=== PATIENT | male | born 1945 | race Caucasian/White ===

== ENCOUNTER 2023-09-19 12:23 | Inpatient (IN) | payer MEDICARE ==
[2023-09-19 14:06] LABS: Bilirubin Neg (Negative); Blood, Urine 250 (Negative); Clarity Cloudy (Clear); Glucose, Urine (Dipstick) Normal (Negative); Ketone, Urine Negative (Negative); Leukocyte 500 (Negative); Nitrite Negative (Negative); Protein, Urine (Dipstick) 30 mg/dl (Neg-Trace); Urobilinogen Normal mg/dL (Less than 2)
[2023-09-19 14:16] LABS: #Basophils 0.05 10x3/uL (0.0-0.2); #Monocytes 1.37 10x3/uL (0.0-1.1); #Neutrophils 9.25 10x3/uL (1.5-8.4); %Basophils 0.4 % (0.0-2.0); %Lymphocytes 10.3 % (18.0-47.0); %Monocytes 11.5 % (0.0-10.0); %Neutrophils 77.4 % (40.0-75.0); Hematocrit 36.4 % (38.8-50.0); Hemoglobin 12.3 g/dL (13.5-17.5); Mean Corpuscular HGB CONC 33.8 g/dL (32.0-36.0); Mean Corpuscular Hemoglobin 32.2 pg (27.0-33.0); Mean Corpuscular Volume 95.3 fl (81.2-95.1); Mean Platelet Volume 9.5 fl (7.4-10.4); Platelet Count 238 10x3/uL (150-450); RBC Distribution Width 13.7 % (11.5-14.5); Red Blood Cell (RBC) Count 3.82 10x6/uL (4.32-5.72)
[2023-09-19 14:17] LABS: Amphetamine Not Detected (NotDetected); Barbiturates Screen Not Detected (NotDetected); Benzodiazepine Screen Not Detected (NotDetected); Cocaine Metabolite Screen Not Detected (NotDetected); Methadone Not Detected (NotDetected); Methamphetamine Not Detected (NotDetected); Opiate Screen Not Detected (NotDetected); Oxycodone Screen Not Detected (NotDetected); Phencyclidine (PCP) Not Detected (NotDetected); THC/Cannabinoid Screen Not Detected (NotDetected); Tricyclic Screen Not Detected (NotDetected)
[2023-09-19 14:22] LABS: Troponin I 0.014 ng/mL (< 0.028)
[2023-09-19 14:27] LABS: Acetaminophen Less than 10 mcg/mL (10.0-30.0); Alcohol Less than 10.0 mg/dL (Less than 10); Salicylate Less than 8.0 mg/dL (15.0-30.0)
[2023-09-19 14:29] LABS: ALT (SGPT) 12 U/L (8-55); AST (SGOT) 10 U/L (5-34); Albumin 2.3 g/dL (3.4-4.8); Alkaline Phosphatase 64 U/L (40-110); Anion Gap 14 mmol/L (10-20); BUN (Urea Nitrogen) 37 mg/dL (8.4-25.7); Bilirubin, Total 0.6 mg/dL (0.2-1.2); Calc. Creatinine Clearance 0 mL/min (70-130); Carbon Dioxide 27 mmol/L (23-31); Chloride 108 mmol/L (98-107); Estimated GFR 85; Globulin 3.8 g/dL (2.4-3.5); Glucose 180 mg/dL (83-110); Potassium 3.5 mmol/L (3.5-5.1); Protein, Total 6.1 g/dL (5.8-8.1); Sodium 145 mmol/L (136-145)
[2023-09-19 14:34] LABS: CAUTI Indications for Culture Alt mental st,lethar; RBC/HPF Greater than 50 HPF (0-3); Renal Epithelial 0-3 HPF (None Seen); Squamous Epithelial 0-3 HPF (0-3)
[2023-09-19 14:35] LABS: Bacteria/HPF Rare-Few HPF (None Seen)
[2023-09-19 14:36] LABS: Urine Culture Reflex Yes Yes
[2023-09-19] MEDS ORDERED: Ondansetron PF 4 MG/2 ML Vial IVP PRN (17:59)
[2023-09-19] MEDS ORDERED: Communication Order-Pharmacy FS ONE (17:59)
[2023-09-19] MEDS ORDERED: Ondansetron ODT 4 MG TAB PO PRN (17:59)
[2023-09-19] MEDS ORDERED: Acetaminophen 650 MG Suppository PR PRN (17:59)
[2023-09-19] MEDS ORDERED: Ipratropium/Albuterol 3 ML NEB NEB PRN (18:13)
[2023-09-19] MEDS ORDERED: Electrolyte Replacement Protocol 1 EACH FS SCH (18:15)
[2023-09-19] MEDS ORDERED: Electrolyte Replacement Protocol FS PRN (18:30)
[2023-09-19] MEDS: Lactated Ringer's 1,000 ML IV SCH (19:32)
[2023-09-19] MEDS: Albumin 25% 25 GM (100 mL) BOT IVPB SCH (19:32)
[2023-09-19] MEDS: Cefepime 2 GM in Sodium Chloride 0.9% 100 ML IVPB SCH (19:53)
[2023-09-19] MEDS ORDERED: metFORMIN XR 500 MG ER.TAB PO SCH (21:00)
[2023-09-19] MEDS ORDERED: Vancomycin 1 GM in Sodium Chloride 0.9% 250 ML 300 ML IVPB SCH (21:00)
[2023-09-19] MEDS: Donepezil HCl 5 MG TAB PO SCH (22:10)
[2023-09-19] MEDS: Apixaban 5 MG TAB PO SCH (22:11)
[2023-09-19] MEDS: Memantine 10 MG TAB PO SCH (22:11)
[2023-09-19] MEDS: Lantus 1000 UNITS/10 ML VIAL SC SCH (22:11)
[2023-09-19] MEDS: Famotidine/PF 20 mg/2ml Vial SLOW IVP SCH (22:11)
[2023-09-19] MEDS: Famotidine 20 MG TAB PO SCH (22:11)
[2023-09-19] MEDS: Ranolazine ER 500 MG TAB PO SCH (22:11)
[2023-09-19] MEDS: Atorvastatin Calcium 40 MG TAB PO SCH (22:11)
[2023-09-19] MEDS: Vancomycin HCl 750 MG in Sodium Chloride 0.9% 250 ML 250 ML IVPB SCH (22:33)
[2023-09-20 05:12] LABS: #Basophils 0.04 10x3/uL (0.0-0.2); #Eosinphils 0.05 10x3/uL (0.0-0.5); #Monocytes 0.89 10x3/uL (0.0-1.1); #Neutrophils 6.58 10x3/uL (1.5-8.4); %Basophils 0.4 % (0.0-2.0); %Eosinophils 0.6 % (0.0-6.0); %Monocytes 9.8 % (0.0-10.0); %Neutrophils 72.9 % (40.0-75.0); Hemoglobin 11.7 g/dL (13.5-17.5); Mean Corpuscular HGB CONC 33.4 g/dL (32.0-36.0); Mean Corpuscular Hemoglobin 31.7 pg (27.0-33.0); Mean Corpuscular Volume 94.9 fl (81.2-95.1); Mean Platelet Volume 9.2 fl (7.4-10.4); Platelet Count 198 10x3/uL (150-450); RBC Distribution Width 13.6 % (11.5-14.5); Red Blood Cell (RBC) Count 3.69 10x6/uL (4.32-5.72)
[2023-09-20 05:15] VITALS: BMI 27.1
[2023-09-20 05:20] LABS: Vancomycin, Random 19.9 ug/mL (See Comment)
[2023-09-20 05:22] LABS: Anion Gap 13 mmol/L (10-20); BUN (Urea Nitrogen) 33 mg/dL (8.4-25.7); Calc. Creatinine Clearance 105 mL/min (70-130); Calcium 8.6 mg/dL (7.8-10.44); Carbon Dioxide 26 mmol/L (23-31); Chloride 111 mmol/L (98-107); Estimated GFR 91; Glucose 173 mg/dL (83-110); Magnesium 1.7 mg/dL (1.6-2.6); Potassium 3.5 mmol/L (3.5-5.1); Sodium 146 mmol/L (136-145)
[2023-09-20] MEDS: Cefepime 2 GM in Sodium Chloride 0.9% 100 ML IVPB SCH (05:35)
[2023-09-20] MEDS: Polyethylene Glycol 3350 17 GM Packet PO SCH (08:37)
[2023-09-20] MEDS: Furosemide 40 MG TAB PO SCH (08:42)
[2023-09-20] MEDS: Lisinopril 10 MG TAB PO SCH (08:42)
[2023-09-20] MEDS: metFORMIN 500 MG TAB PO SCH (08:43)
[2023-09-20] MEDS: Potassium Chloride 20 MEQ TAB PO SCH (08:43)
[2023-09-20] MEDS: Sertraline 100 MG TAB PO SCH (08:43)
[2023-09-20] MEDS: Aspirin 81 mg Enteric Coated Tablet PO SCH (08:43)
[2023-09-20] MEDS: Magnesium 2 GM/50 ML(in water) 2 GM in Premix 1 BAG IVPB SCH (08:50)
[2023-09-20] MEDS: Vancomycin 1 GM in Sodium Chloride 0.9% 250 ML 250 ML IVPB SCH (10:59)
[2023-09-20] MEDS ORDERED: Bisacodyl 5 MG TAB PO PRN (14:08)
[2023-09-20] MEDS ORDERED: Senokot S 8.6-50 MG TAB PO PRN (14:08)
[2023-09-20] MEDS: Acetaminophen 325 MG TAB PO PRN (15:03)
[2023-09-20] MEDS: Icosapent Ethyl 1 GM CAPSULE PO SCH (18:39)
[2023-09-21 04:14] LABS: Vancomycin, Random 12.9 ug/mL (See Comment)
[2023-09-21 10:29] LABS: Anion Gap 11 mmol/L (10-20); BUN (Urea Nitrogen) 26 mg/dL (8.4-25.7); Calc. Creatinine Clearance 115 mL/min (70-130); Calcium 8.4 mg/dL (7.8-10.44); Carbon Dioxide 28 mmol/L (23-31); Chloride 106 mmol/L (98-107); Estimated GFR 94; Glucose 83 mg/dL (83-110); Potassium 3.6 mmol/L (3.5-5.1); Sodium 141 mmol/L (136-145)
[2023-09-21] MEDS: Vancomycin 1 GM in Sodium Chloride 0.9% 250 ML 250 ML IVPB SCH (11:25)
[2023-09-21] MEDS: Tamsulosin HCl 0.4 MG CAP PO SCH (17:01)
[2023-09-22 03:26] LABS: #Basophils 0.03 10x3/uL (0.0-0.2); #Monocytes 0.56 10x3/uL (0.0-1.1); #Neutrophils 5.09 10x3/uL (1.5-8.4); %Basophils 0.4 % (0.0-2.0); %Eosinophils 3.9 % (0.0-6.0); %Lymphocytes 22.2 % (18.0-47.0); %Monocytes 7.3 % (0.0-10.0); %Neutrophils 65.8 % (40.0-75.0); Hematocrit 33.9 % (38.8-50.0); Hemoglobin 11.3 g/dL (13.5-17.5); Mean Corpuscular HGB CONC 33.3 g/dL (32.0-36.0); Mean Corpuscular Hemoglobin 31.1 pg (27.0-33.0); Mean Corpuscular Volume 93.4 fl (81.2-95.1); Mean Platelet Volume 9.7 fl (7.4-10.4); Platelet Count 185 10x3/uL (150-450); RBC Distribution Width 12.6 % (11.5-14.5); Red Blood Cell (RBC) Count 3.63 10x6/uL (4.32-5.72); White Blood Cell (WBC) Count 7.7 10x3/uL (3.5-10.5)
[2023-09-22 03:50] LABS: Anion Gap 12 mmol/L (10-20); BUN (Urea Nitrogen) 24 mg/dL (8.4-25.7); Calc. Creatinine Clearance 124 mL/min (70-130); Calcium 8.1 mg/dL (7.8-10.44); Carbon Dioxide 24 mmol/L (23-31); Chloride 102 mmol/L (98-107); Estimated GFR 96; Glucose 69 mg/dL (83-110); Potassium 3.3 mmol/L (3.5-5.1); Sodium 135 mmol/L (136-145)
[2023-09-22] MEDS: Tamsulosin HCl 0.4 MG CAP PO SCH (09:32)
[2023-09-22] MEDS: Potassium Chloride 20 MEQ TAB PO SCH (09:33)
[2023-09-22 12:12] LABS: Vancomycin, Random 11.5 ug/mL (See Comment)
[2023-09-22] MEDS: Vancomycin 1 GM in Sodium Chloride 0.9% 250 ML 250 ML IVPB SCH (20:33)
[2023-09-23 04:19] LABS: #Basophils 0.04 10x3/uL (0.0-0.2); #Eosinphils 0.33 10x3/uL (0.0-0.5); #Monocytes 0.52 10x3/uL (0.0-1.1); #Neutrophils 4.06 10x3/uL (1.5-8.4); %Basophils 0.6 % (0.0-2.0); %Eosinophils 5.1 % (0.0-6.0); %Lymphocytes 22.7 % (18.0-47.0); %Monocytes 8.1 % (0.0-10.0); Hemoglobin 11.3 g/dL (13.5-17.5); Mean Corpuscular HGB CONC 34.2 g/dL (32.0-36.0); Mean Corpuscular Hemoglobin 32.3 pg (27.0-33.0); Mean Corpuscular Volume 94.3 fl (81.2-95.1); Mean Platelet Volume 9.3 fl (7.4-10.4); Platelet Count 187 10x3/uL (150-450); RBC Distribution Width 12.5 % (11.5-14.5); White Blood Cell (WBC) Count 6.4 10x3/uL (3.5-10.5)
[2023-09-23 04:31] LABS: Anion Gap 12 mmol/L (10-20); BUN (Urea Nitrogen) 20 mg/dL (8.4-25.7); Calc. Creatinine Clearance 129 mL/min (70-130); Calcium 8.1 mg/dL (7.8-10.44); Carbon Dioxide 24 mmol/L (23-31); Chloride 102 mmol/L (98-107); Estimated GFR 97; Glucose 67 mg/dL (83-110); Magnesium 1.5 mg/dL (1.6-2.6); Potassium 3.5 mmol/L (3.5-5.1); Sodium 134 mmol/L (136-145)
[2023-09-23 04:32] LABS: Vancomycin, Random Less than 1.1 ug/mL (See Comment)
[2023-09-23 10:15] LABS: Vancomycin, Random 15.6 ug/mL (See Comment)
[2023-09-23] MEDS: Potassium Chloride 20 MEQ TAB PO SCH (10:54)
[2023-09-23] MEDS: Magnesium 2 GM/50 ML(in water) 2 GM in Premix 1 BAG IVPB SCH (10:55)
[2023-09-23 12:58] VITALS: BP 136/86; TEMP 98.2
== END 2023-09-23 15:15 | DRG 70 ==
LOC: CSHERS 12:23 → CSHTELE 16:23 → OBSVTOIN 18:05
PROVIDERS: ADMIT Family Medicine; ATTEND Internal Medicine
PROC: 30233J1 Transfusion of Nonautologous Serum Albumin into Peripheral Vein, Percutaneous Approach (ICD-10-PCS; principal; 2023-09-19)
DX: G93.41 Metabolic encephalopathy (principal); J69.0 Pneumonitis due to inhalation of food and vomit; J96.01 Acute respiratory failure with hypoxia; N39.0 Urinary tract infection, site not specified; E87.1 Hypo-osmolality and hyponatremia; E44.0 Moderate protein-calorie malnutrition; R78.81 Bacteremia; Z66 Do not resuscitate; I48.91 Unspecified atrial fibrillation; I25.10 Atherosclerotic heart disease of native coronary artery without angina pectoris; R33.9 Retention of urine, unspecified; J44.9 Chronic obstructive pulmonary disease, unspecified; F17.210 Nicotine dependence, cigarettes, uncomplicated; F01.50 Vascular dementia, unspecified severity, without behavioral disturbance, psychotic disturbance, mood disturbance, and anxiety; M19.032 Primary osteoarthritis, left wrist; E11.649 Type 2 diabetes mellitus with hypoglycemia without coma; I10 Essential (primary) hypertension; D53.9 Nutritional anemia, unspecified; E87.6 Hypokalemia; E83.42 Hypomagnesemia; E88.09 Other disorders of plasma-protein metabolism, not elsewhere classified; Z96.653 Presence of artificial knee joint, bilateral; Z98.890 Other specified postprocedural states; Z71.6 Tobacco abuse counseling; Z79.2 Long term (current) use of antibiotics; Z79.84 Long term (current) use of oral hypoglycemic drugs
CPT/HCPCS: 36415; 36416; 51701; 70450; 70551; 71045; 80048; 80053; 80202; 80306; 80307; 81001; 83605; 83735; 83880; 84145; 84443; 84484; 85025; 87040; 87086; 93005; 93010; 94760; 94762; J0692; J1815; J3370; J3475; J3490; J7050; J7120; P9047; S0028

== ENCOUNTER 2023-11-28 19:29 | Inpatient (IN) | payer MEDICARE ==
[2023-11-28 20:09] LABS: Actual Bicarbonate (HCO3v) 24.7 mEq/L (22-28); Analyzer IN Cardio CS ER; Base Excess 1.2 mEq/L (-2 - +2); Calcium, Ionized (venous) 1.08 mmol/L (1.16-1.32); Chloride (VBG) 97 mmol/L (98-106); Hematocrit-VBG 41 % (42.0-52.0); Hemoglobin (Hb) 13.9 g/dL (12.6-17.4); Potassium (VBG) 3.78 mmol/L (3.70-5.30); Puncture Site Other Site; RapidComm Collect By lab; Sodium 133 mmol/L (133-146); pH (venous) 7.459 (7.32-7.43)
[2023-11-28 20:18] LABS: INR-International Normal Ratio 1.1; PTT 29.3 sec (22.0-33.0); Prothrombin Time 12.2 sec (9.5-12.1)
[2023-11-28 20:21] LABS: #Basophils 0.05 10x3/uL (0.0-0.2); #Eosinphils 0.04 10x3/uL (0.0-0.5); #Monocytes 0.78 10x3/uL (0.0-1.1); #Neutrophils 3.12 10x3/uL (1.5-8.4); %Basophils 1.1 % (0.0-2.0); %Eosinophils 0.9 % (0.0-6.0); %Monocytes 17.8 % (0.0-10.0); %Neutrophils 71.1 % (40.0-75.0); Hematocrit 36.3 % (38.8-50.0); Hemoglobin 12.8 g/dL (13.5-17.5); Mean Corpuscular HGB CONC 35.3 g/dL (32.0-36.0); Mean Corpuscular Hemoglobin 33.2 pg (27.0-33.0); Mean Corpuscular Volume 94.3 fL (81.2-95.1); Mean Platelet Volume 9.2 fL (7.4-10.4); Platelet Count 185 10x3/uL (150-450); RBC Distribution Width 13.8 % (11.5-14.5); Red Blood Cell (RBC) Count 3.85 10x6/uL (4.32-5.72); White Blood Cell (WBC) Count 4.4 10x3/uL (3.5-10.5)
[2023-11-28 20:22] LABS: ALT (SGPT) 15 U/L (8-55); AST (SGOT) 20 U/L (5-34); Albumin 3.5 g/dL (3.4-4.8); Alkaline Phosphatase 72 U/L (40-110); Anion Gap 12 mmol/L (10-20); BUN (Urea Nitrogen) 22 mg/dL (8.4-25.7); Bilirubin, Total 0.2 mg/dL (0.2-1.2); Calc. Creatinine Clearance 0 mL/min (70-130); Calcium 8.9 mg/dL (7.8-10.44); Carbon Dioxide 25 mmol/L (23-31); Chloride 100 mmol/L (98-107); Estimated GFR 90; Globulin 3.1 g/dL (2.4-3.5); Glucose 102 mg/dL (83-110); Lipase 15 U/L (8-78); Magnesium 1.5 mg/dL (1.6-2.6); Potassium 3.8 mmol/L (3.5-5.1); Protein, Total 6.6 g/dL (5.8-8.1); Sodium 133 mmol/L (136-145)
[2023-11-28 20:25] LABS: Troponin I Less than 0.010 ng/mL (< 0.028)
[2023-11-28 20:47] LABS: Influenza A by NAA Not Detected (NotDetected); Influenza B by NAA Not Detected (NotDetected); SARS-CoV-2 NAA Rapid Test DETECTED (NotDetected)
[2023-11-28 20:55] LABS: Bilirubin Neg (Negative); Blood, Urine 50 (Negative); Clarity Clear (Clear); Glucose, Urine (Dipstick) Normal (Negative); Ketone, Urine Negative (Negative); Leukocyte Negative (Negative); Nitrite Negative (Negative); Protein, Urine (Dipstick) Negative (Neg-Trace); Urobilinogen Normal mg/dL (Less than 2)
[2023-11-28] MEDS ORDERED: Magnesium 2 GM/50 ML BAG (IN WATER) ONE (20:56)
[2023-11-28 21:14] LABS: Bacteria/HPF Rare-Few HPF (None Seen); CAUTI Indications for Culture Alt mental st,lethar; Squamous Epithelial 0-3 HPF (0-3); Transitional Epithelial 0-3 HPF (None Seen); WBC/HPF 0-3 HPF (0-3)
[2023-11-28 21:16] LABS: Urine Culture Reflex No No
[2023-11-28] MEDS ORDERED: Acetaminophen 650 MG Suppository PR PRN (22:48)
[2023-11-28] MEDS ORDERED: Sodium Chloride 0.9% 1,000 ML IV SCH (23:00)
[2023-11-28] MEDS ORDERED: Magnesium 2 GM/50 ML(in water) 2 GM in Premix 1 BAG IVPB SCH (23:00)
[2023-11-28] MEDS ORDERED: Glucagon 1 MG/ML KIT IM PRN (23:09)
[2023-11-28] MEDS ORDERED: Dextrose 5% in Water 1,000 ML IV PRN (23:09)
[2023-11-28] MEDS ORDERED: Insulin Lispro 100 UNIT/ML 10 ML VIAL SC PRN (23:25)
[2023-11-28 23:34] VITALS: BMI 40.7
[2023-11-28 23:57] LABS: ALV-art Gradient 45.885 mmHg (0-20); Actual Bicarbonate (HCO3a) 26.3 mEq/L (22-28); Analyzer IN Cardio CS ER; Base Excess (BEa) 1.5 mEq/L (-2.0 to +3.0); CO2 Tension 42.3 mmHg (35.0-45.0); Calcium, Ionized (arterial) 1.15 mmol/L (1.12-1.30); Carboxyhemoglobin (COHb) 0.3 gm% (0.0-3.0); Hematocrit-ABG 36 % (42.0-52.0); Hemoglobin (Hb) 12.1 g/dL (14.0-18.0); O2 Tension (PaO2), arterial 129.4 mmHg (> 70.0); Potassium - ABG Lab 3.52 mmol/L (3.70-5.30); Puncture Site RRA; pH, Arterial 7.411 (7.35-7.45)
[2023-11-29 00:08] LABS: Troponin I Less than 0.010 ng/mL (< 0.028)
[2023-11-29] MEDS: NIRMATRELVIR 150 MG (X 2)/RITONAVIR 100 MG DOSE PACK PO SCH ×2 (00:19→11:23)
[2023-11-29] MEDS: NS 0.9% w/ 20 MEQ KCL 1,000 ML/1,000 ML BAG IV SCH (00:20)
[2023-11-29 03:41] LABS: Hematocrit 37.4 % (38.8-50.0); Hemoglobin 13.2 g/dL (13.5-17.5); MDiff Complete? YES; Mean Corpuscular HGB CONC 35.3 g/dL (32.0-36.0); Mean Corpuscular Hemoglobin 33.4 pg (27.0-33.0); Mean Corpuscular Volume 94.7 fL (81.2-95.1); Mean Platelet Volume 9.3 fL (7.4-10.4); Platelet Count 165 10x3/uL (150-450); RBC Distribution Width 13.7 % (11.5-14.5); Red Blood Cell (RBC) Count 3.95 10x6/uL (4.32-5.72); White Blood Cell (WBC) Count 3.4 10x3/uL (3.5-10.5)
[2023-11-29 03:53] LABS: Anion Gap 13 mmol/L (10-20); BUN (Urea Nitrogen) 19 mg/dL (8.4-25.7); Calc. Creatinine Clearance 132 mL/min (70-130); Calcium 8.9 mg/dL (7.8-10.44); Carbon Dioxide 25 mmol/L (23-31); Chloride 101 mmol/L (98-107); Estimated GFR 92; Glucose 82 mg/dL (83-110); Magnesium 1.8 mg/dL (1.6-2.6); Potassium 3.9 mmol/L (3.5-5.1); Sodium 135 mmol/L (136-145)
[2023-11-29 03:56] LABS: Troponin I Less than 0.010 ng/mL (< 0.028)
[2023-11-29 04:04] LABS: Band 5 % (5-11); Lymphocytes 17 % (21-51); Monocytes 21 % (0-10); Neutrophil 57 % (42-75)
[2023-11-29 04:07] LABS: Platelet Adequacy Comment Appears Adequate; RBC Morph Comment Within Normal Limits
[2023-11-29] MEDS: Enoxaparin 40 MG (0.4 mL) SYRINGE SC SCH (08:18)
[2023-11-29 11:14] VITALS: BMI 40.7
[2023-11-29] MEDS ORDERED: Nystatin Powder 15 GM BOT TOP PRN (14:24)
[2023-11-29] MEDS ORDERED: Albuterol 2.5 MG (3 mL) NEB NEB PRN (14:25)
[2023-11-29] MEDS ORDERED: Acetaminophen 325 MG TAB PO PRN (15:13)
[2023-11-29] MEDS: Ventolin HFA Inhaler 60 PUFF INHALER INH PRN (17:05)
[2023-11-29] MEDS: metFORMIN 500 MG TAB PO SCH (17:13)
[2023-11-29] MEDS: Icosapent Ethyl 1 GM CAPSULE PO SCH (18:19)
[2023-11-29] MEDS: Insulin Regular, Human 100 UNIT/ML 10 ML VIAL FS SCH (18:19)
[2023-11-29] MEDS: Memantine 10 MG TAB PO SCH (21:35)
[2023-11-29] MEDS: Donepezil HCl 5 MG TAB PO SCH (21:35)
[2023-11-29] MEDS: Apixaban 2.5 MG TAB PO SCH (21:36)
[2023-11-30 04:17] LABS: Anion Gap 9 mmol/L (10-20); BUN (Urea Nitrogen) 13 mg/dL (8.4-25.7); Calc. Creatinine Clearance 154 mL/min (70-130); Calcium 8.1 mg/dL (7.8-10.44); Carbon Dioxide 26 mmol/L (23-31); Chloride 101 mmol/L (98-107); Estimated GFR 96; Glucose 98 mg/dL (83-110); Hematocrit 34.4 % (38.8-50.0); Hemoglobin 12.2 g/dL (13.5-17.5); Mean Corpuscular HGB CONC 35.5 g/dL (32.0-36.0); Mean Corpuscular Hemoglobin 33.3 pg (27.0-33.0); Mean Platelet Volume 9.5 fL (7.4-10.4); Platelet Count 149 10x3/uL (150-450); Potassium 3.9 mmol/L (3.5-5.1); RBC Distribution Width 13.6 % (11.5-14.5); Red Blood Cell (RBC) Count 3.66 10x6/uL (4.32-5.72); Sodium 132 mmol/L (136-145); White Blood Cell (WBC) Count 3.2 10x3/uL (3.5-10.5)
[2023-11-30 04:18] LABS: MDiff Complete? YES
[2023-11-30 05:48] LABS: Band 1 % (5-11); Lymphocytes 29 % (21-51); Monocytes 21 % (0-10); Neutrophil 48 % (42-75); Reactive Lymphocytes 1 % (0-10)
[2023-11-30 05:50] LABS: Anisocytosis SLIGHT = 6-15 cells (100X) (0-5/hpf); Hypochromia SLIGHT = 6-15 cells (100X) (0-5/hpf); Macrocytosis SLIGHT = 6-15 cells (100X) (0-5/hpf); Microcytosis SLIGHT = 6-15 cells (100X) (0-5/hpf)
[2023-11-30 05:51] LABS: Platelet Adequacy Comment Appears Adequate
[2023-11-30] MEDS: Furosemide 40 MG TAB PO SCH (08:25)
[2023-11-30] MEDS: Magnesium Oxide 400 MG TAB PO SCH (08:25)
[2023-11-30] MEDS: glipiZIDE 10 MG TAB PO SCH (08:25)
[2023-11-30] MEDS: Multivit, Therapeutic 1 TAB PO SCH (08:26)
[2023-11-30] MEDS: Hydrochlorothiazide 25 MG TAB PO SCH (08:26)
[2023-11-30] MEDS: Potassium Chloride 20 MEQ TAB PO SCH (08:27)
[2023-11-30] MEDS: Aspirin Chewable 81 MG TAB PO SCH (08:27)
[2023-11-30] MEDS: Sertraline 100 MG TAB PO SCH (08:27)
[2023-11-30] MEDS: Lisinopril 5 MG TAB PO SCH (08:29)
[2023-11-30] MEDS: Loperamide HCl 2 MG CAP PO PRN (15:48)
[2023-11-30] MEDS: Dextrose 50% Abboject 50 ML SYRINGE SLOW IVP PRN (18:11)
[2023-12-01 06:25] LABS: Anion Gap 11 mmol/L (10-20); BUN (Urea Nitrogen) 15 mg/dL (8.4-25.7); Calc. Creatinine Clearance 164 mL/min (70-130); Calcium 8.3 mg/dL (7.6-10.4); Carbon Dioxide 26 mmol/L (23-31); Chloride 103 mmol/L (98-107); Estimated GFR 98; Glucose 57 mg/dL (83-110); Potassium 3.9 mmol/L (3.5-5.1); Sodium 136 mmol/L (136-145)
[2023-12-01 06:30] LABS: #Basophils 0.02 10x3/uL (0.0-0.2); #Eosinphils 0.03 10x3/uL (0.0-0.5); #Monocytes 0.73 10x3/uL (0.0-1.1); #Neutrophils 2.35 10x3/uL (1.5-8.4); %Basophils 0.4 % (0.0-2.0); %Eosinophils 0.7 % (0.0-6.0); %Lymphocytes 29.2 % (18.0-47.0); %Monocytes 16.4 % (0.0-10.0); %Neutrophils 52.9 % (40.0-75.0); Hematocrit 37.2 % (38.8-50.0); Hemoglobin 12.8 g/dL (13.5-17.5); Mean Corpuscular HGB CONC 34.4 g/dL (32.0-36.0); Mean Corpuscular Hemoglobin 32.5 pg (27.0-33.0); Mean Corpuscular Volume 94.4 fL (81.2-95.1); Mean Platelet Volume 9.3 fL (7.4-10.4); Platelet Count 148 10x3/uL (150-450); RBC Distribution Width 13.7 % (11.5-14.5); Red Blood Cell (RBC) Count 3.94 10x6/uL (4.32-5.72); White Blood Cell (WBC) Count 4.5 10x3/uL (3.5-10.5)
[2023-12-01] MEDS: methylPREDNISolone Sod Succ/PF 125 MG/2 ML VIAL IVP SCH (16:40)
[2023-12-02 04:26] LABS: #Basophils 0.02 10x3/uL (0.0-0.2); #Eosinphils 0.15 10x3/uL (0.0-0.5); #Monocytes 0.53 10x3/uL (0.0-1.1); #Neutrophils 1.67 10x3/uL (1.5-8.4); %Basophils 0.5 % (0.0-2.0); %Eosinophils 3.6 % (0.0-6.0); %Monocytes 12.9 % (0.0-10.0); %Neutrophils 40.5 % (40.0-75.0); Hematocrit 36.9 % (38.8-50.0); Hemoglobin 12.9 g/dL (13.5-17.5); Mean Corpuscular Hemoglobin 32.7 pg (27.0-33.0); Mean Corpuscular Volume 93.7 fL (81.2-95.1); Mean Platelet Volume 9.7 fL (7.4-10.4); Platelet Count 157 10x3/uL (150-450); RBC Distribution Width 13.6 % (11.5-14.5); Red Blood Cell (RBC) Count 3.94 10x6/uL (4.32-5.72); White Blood Cell (WBC) Count 4.1 10x3/uL (3.5-10.5)
[2023-12-02 04:39] LABS: Anion Gap 12 mmol/L (10-20); BUN (Urea Nitrogen) 16 mg/dL (8.4-25.7); Calc. Creatinine Clearance 139 mL/min (70-130); Calcium 8.4 mg/dL (7.8-10.44); Carbon Dioxide 25 mmol/L (23-31); Chloride 99 mmol/L (98-107); Estimated GFR 93; Glucose 57 mg/dL (83-110); Potassium 3.8 mmol/L (3.5-5.1); Sodium 132 mmol/L (136-145)
[2023-12-02] MEDS: predniSONE 20 MG TAB PO SCH (08:18)
[2023-12-03] MEDS: Insulin Lispro 100 UNIT/ML 10 ML VIAL SC SCH ×2 (07:57→22:04)
[2023-12-03] MEDS: glipiZIDE 5 MG TAB PO SCH (07:58)
[2023-12-04] MEDS: Guaifenesin DM 100-10/5 ML UDCUP PO PRN (00:21)
[2023-12-04] MEDS ORDERED: Insulin Lispro 100 UNIT/ML 10 ML VIAL SC PRN ×2 (08:14→08:15)
[2023-12-04] MEDS: Ranolazine ER 500 MG TAB PO SCH (08:56)
[2023-12-04] MEDS: Apixaban 5 MG TAB PO SCH (08:57)
[2023-12-04 12:30] VITALS: TEMP 98.3
[2023-12-04 14:14] VITALS: BP 102/64
[2023-12-06] MEDS ORDERED: Tamsulosin HCl 0.4 MG CAP PO SCH (09:00)
[2023-12-08] MEDS ORDERED: Atorvastatin Calcium 40 MG TAB PO SCH (21:00)
== END 2023-12-04 15:22 | disposition home or self-care (01) | DRG 177 ==
LOC: CSHERS 19:29 → CSHTELE 21:39 → OBSVTOIN 11-30 09:25
PROVIDERS: ADMIT Family Medicine; ATTEND Hospitalist
PROC: 4A033R1 Measurement of Arterial Saturation, Peripheral, Percutaneous Approach (ICD-10-PCS; principal; 2023-11-28)
PROC: 8E0ZXY6 Isolation (ICD-10-PCS; 2023-11-30)
DX: U07.1 COVID-19 (principal); G93.41 Metabolic encephalopathy; F03.90 Unspecified dementia, unspecified severity, without behavioral disturbance, psychotic disturbance, mood disturbance, and anxiety; E83.42 Hypomagnesemia; J44.9 Chronic obstructive pulmonary disease, unspecified; E11.9 Type 2 diabetes mellitus without complications; I25.10 Atherosclerotic heart disease of native coronary artery without angina pectoris; Z86.73 Personal history of transient ischemic attack (TIA), and cerebral infarction without residual deficits; Z66 Do not resuscitate; I48.91 Unspecified atrial fibrillation; I50.9 Heart failure, unspecified; I11.0 Hypertensive heart disease with heart failure; M06.9 Rheumatoid arthritis, unspecified; Z88.5 Allergy status to narcotic agent; Z79.01 Long term (current) use of anticoagulants; Z79.899 Other long term (current) drug therapy; Z79.4 Long term (current) use of insulin; Z79.84 Long term (current) use of oral hypoglycemic drugs
CPT/HCPCS: 36415; 36416; 36600; 51701; 71045; 80048; 80053; 81001; 82805; 83605; 83690; 83735; 83880; 84484; 85025; 85610; 85730; 87040; 87086; 93005; 94760; 96372; 96374; 96375; 96376; G0378; J1650; J1815; J3475; J3480; J7512; J7999; J8499

== ENCOUNTER 2024-03-09 09:11 | Emergency (ER) | payer MEDICARE ==
[2024-03-09] MEDS ORDERED: Ketorolac Tromethamine 30 MG (1 mL) VIAL ONE (09:41)
== END 2024-03-09 13:54 | disposition home or self-care (01) ==
LOC: CSHERS 09:11
DX: M54.50 Low back pain, unspecified (principal); E11.9 Type 2 diabetes mellitus without complications; J44.9 Chronic obstructive pulmonary disease, unspecified; I11.0 Hypertensive heart disease with heart failure; I50.9 Heart failure, unspecified; F17.210 Nicotine dependence, cigarettes, uncomplicated; W19.XXXA Unspecified fall, initial encounter
CPT/HCPCS: 70450; 72125; 72128; 72131; J1885; 96374